=== PATIENT | female | born 1990 | race African-American/Black ===

== ENCOUNTER 2019-04-22 08:57 | Inpatient (IN) | payer MEDICAID ==
[~2019-04-22] VITALS: Ht 157.5 cm; Wt 91.6 kg
[2019-04-22] MEDS: LACTATED RINGERS 500ML 500 ML IV SCH ×3 (03:25→09:58)
[2019-04-22] MEDS ORDERED: DEXT 5%/LR + PITOCIN 20UNITS/L 1,000 ML IV SCH ×2 (09:01→18:44)
[2019-04-22] MEDS ORDERED: NALOXONE HCL 0.4 MG/ML 1ML VIAL IM PRN (09:15)
[2019-04-22] MEDS ORDERED: METHYLERGONOVINE MALEATE 0.2 MG/ML IM PRN (09:15)
[2019-04-22] MEDS ORDERED: CARBOPROST TROMETHAMINE 250 MCG/ML AMPUL IM PRN (09:15)
[2019-04-22 10:46] LABS: BASOPHILS % 0.5 % (0.0-2.0); EOSINOPHILS % 0.9 % (0.0-5.0); HEMATOCRIT. 33.8 % (36.0-48.0); HEMOGLOBIN. 11.7 g/dL (12.0-16.0); LYMPHOCYTES % 31.1 % (20.0-50.0); MEAN CORPUSCULAR VOLUME 86.9 fL (81.0-99.0); MEAN PLATELET VOLUME 9.9 fl (7.4-10.4); MONOCYTES % 8.7 % (2.0-8.0); NEUTROPHILS % 58.8 % (40.0-76.0); PLATELET 225 x1000/uL (130-400); RED BLOOD CELL COUNT 3.89 mill/uL (4.2-5.4); RED CELL DISTRIBUTION WIDTH 13.2 % (11.6-14.6)
[2019-04-22 10:49] LABS: CLARITY URINE CLOUDY (CLEAR); COLOR URINE YELLOW (YELLOW); KETONES URINE NEGATIVE (NEGATIVE); LEUKOCYTE ESTERASE URINE 3+ (NEGATIVE); NITRITE URINE NEGATIVE (NEGATIVE); OCCULT BLOOD URINE TRACE (NEGATIVE); PROTEIN URINE TRACE (NEGATIVE)
[2019-04-22 10:55] LABS: PARTIAL THROMBOPLASTIN TIME 27.5 sec (23.4-31.0); PROTHROMBIN TIME 9.8 sec (9.6-11.0)
[2019-04-22 11:36] LABS: *AMPHETAMINES SCREEN URINE NEGATIVE (NEGATIVE); *BARBITURATES SCREEN URINE NEGATIVE (NEGATIVE)
[2019-04-22 11:37] LABS: *BENZODIAZEPINES SCREEN URINE NEGATIVE (NEGATIVE); *COCAINE SCREEN URINE NEGATIVE (NEGATIVE); CANNABINOID URINE SCREEN NEGATIVE (NEGATIVE); METHADONE URINE SCREEN NEGATIVE (NEGATIVE); OPIATES URINE SCREEN NEGATIVE (NEGATIVE); PHENCYCLIDINE URINE SCREEN NEGATIVE (NEGATIVE)
[2019-04-22 12:11] LABS: HEPATITIS B SURFACE ANTIGEN NEGATIVE
[2019-04-22] MEDS ORDERED: FENTANYL CITRATE/PF 50MCG/ML 2ML VIAL ONE (17:25)
[2019-04-22] MEDS ORDERED: MORPHINE SULFATE/PF 1MG/ML 10ML AMP ONE (17:25)
[2019-04-22] MEDS ORDERED: CEFAZOLIN SODIUM 1000MG/VIAL ONE (17:25)
[2019-04-22] MEDS ORDERED: OXYTOCIN 10 UNITS/ML 1ML ONE ×2 (17:25→18:19)
[2019-04-22] MEDS ORDERED: ONDANSETRON HCL 4MG/2ML INJ ONE (17:25)
[2019-04-22] MEDS ORDERED: KETOROLAC 60MG/2ML VIAL IM ONE (17:25)
[2019-04-22] MEDS ORDERED: IBUPROFEN 400MG TABLET PO PRN (18:45)
[2019-04-22] MEDS ORDERED: HYDROCODONE/ACETAMINOPHEN 5/325MG TABLET PO PRN (18:45)
[2019-04-22] MEDS ORDERED: HEMORRHOIDAL SUPP PR PRN (18:45)
[2019-04-22] MEDS ORDERED: ONDANSETRON HCL 4MG/2ML INJ IV PRN (18:45)
[2019-04-22] MEDS ORDERED: BISACODYL 10MG SUPP PR PRN (18:45)
[2019-04-22] MEDS ORDERED: RHO(D) IMMUNE GLOBULIN 300 MCG/SYR IM PRN (18:45)
[2019-04-22] MEDS ORDERED: MORPHINE SULFATE 2 MG/ML CPJ (NOT FOR IM USE) IV PRN ×2 (19:00)
[2019-04-22] MEDS ORDERED: DIPHENHYDRAMINE 50MG/ML VIAL IV PRN (19:00)
[2019-04-22] MEDS ORDERED: DIPHENHYDRAMINE 25MG CAPSULE PO PRN (21:00)
[2019-04-22] MEDS: DOCUSATE SODIUM 100MG CAPSULE PO SCH (21:00)
[2019-04-22] MEDS: MAGNESIUM/ALUMINUM HYDROXIDE/SIMETHICONE 30ML UDC PO SCH (21:00)
[2019-04-22] MEDS: SIMETHICONE 80MG TABLET CHEW PO SCH (21:00)
[2019-04-22 21:45] VITALS: BP 109/59
[2019-04-22 22:15] VITALS: BP 108/52
[2019-04-22 22:45] VITALS: BP 102/55
[2019-04-22 23:15] VITALS: BP 102/60
[2019-04-23 02:00] VITALS: BP 102/58
[2019-04-23] MEDS ORDERED: ONDANSETRON HCL 4MG/2ML INJ IV PRN (02:00)
[2019-04-23 06:00] VITALS: BP 104/60
[2019-04-23] MEDS: KETOROLAC 30MG/ML VIAL IV PRN ×2 (06:20→07:28)
[2019-04-23 07:02] VITALS: BP 104/54
[2019-04-23 07:10] LABS: BASOPHILS % 0.2 % (0.0-2.0); EOSINOPHILS % 0.3 % (0.0-5.0); HEMATOCRIT. 28.8 % (36.0-48.0); HEMOGLOBIN. 9.9 g/dL (12.0-16.0); MEAN CORPUSCULAR HEMOGLOBIN 30.1 pg (28.0-32.0); MEAN CORPUSCULAR VOLUME 87.3 fL (81.0-99.0); MEAN PLATELET VOLUME 9.6 fl (7.4-10.4); MONOCYTES % 8.8 % (2.0-8.0); NEUTROPHILS % 76.7 % (40.0-76.0); PLATELET 170 x1000/uL (130-400); RED CELL DISTRIBUTION WIDTH 13.2 % (11.6-14.6)
[2019-04-23 07:30] VITALS: BP 108/58
[2019-04-23 15:01] VITALS: BP 99/52
[2019-04-23] MEDS: ACETAMINOPHEN WITH CODEINE 300/30MG TABLET PO PRN (17:23)
[2019-04-23 19:30] VITALS: BP 110/63
[2019-04-23] MEDS: MAGNESIUM/ALUMINUM HYDROXIDE/SIMETHICONE 30ML UDC PO SCH (22:09)
[2019-04-23] MEDS: SIMETHICONE 80MG TABLET CHEW PO SCH (22:10)
[2019-04-23] MEDS: DOCUSATE SODIUM 100MG CAPSULE PO SCH (22:10)
[2019-04-24] MEDS: ACETAMINOPHEN WITH CODEINE 300/30MG TABLET PO PRN ×4 (03:41→22:05)
[2019-04-24 08:00] VITALS: BP 112/66
[2019-04-24] MEDS: SIMETHICONE 80MG TABLET CHEW PO SCH ×2 (08:44→21:02)
[2019-04-24] MEDS: PRENATAL VIT/FE FUMARATE/FA TABLET PO SCH (08:45)
[2019-04-24] MEDS: FERROUS SULFATE 325MG TABLET PO SCH (08:46)
[2019-04-24 16:45] VITALS: BP 128/79
[2019-04-24 19:30] VITALS: BP 112/63
[2019-04-24] MEDS: MAGNESIUM/ALUMINUM HYDROXIDE/SIMETHICONE 30ML UDC PO SCH (21:02)
[2019-04-24] MEDS: DOCUSATE SODIUM 100MG CAPSULE PO SCH (21:02)
[2019-04-25] MEDS: ACETAMINOPHEN WITH CODEINE 300/30MG TABLET PO PRN (02:18)
[2019-04-25 04:00] VITALS: BP 110/65
[2019-04-25] MEDS ORDERED: IBUP-2028 PO (06:42)
[2019-04-25 07:30] VITALS: BP 117/72
[2019-04-25] MEDS: MAGNESIUM/ALUMINUM HYDROXIDE/SIMETHICONE 30ML UDC PO SCH (08:35)
[2019-04-25] MEDS: FERROUS SULFATE 325MG TABLET PO SCH (08:36)
[2019-04-25] MEDS: PRENATAL VIT/FE FUMARATE/FA TABLET PO SCH (08:36)
[2019-04-25] MEDS: SIMETHICONE 80MG TABLET CHEW PO SCH (08:36)
== END 2019-04-25 11:45 | disposition home or self-care (01) | DRG 540 ==
LOC: 8 EST LDRP 08:57 → OBSVTOIN 08:57 → 8EST 20:36
PROVIDERS: ADMIT Obstetrics & Gynecology; ATTEND Obstetrics & Gynecology
PROC: 10D00Z1 Extraction of Products of Conception, Low, Open Approach (ICD-10-PCS; principal; 2019-04-22)
DX: O36.8130 Decreased fetal movements, third trimester, not applicable or unspecified (principal); O41.03X0 Oligohydramnios, third trimester, not applicable or unspecified; O34.211 Maternal care for low transverse scar from previous cesarean delivery; O99.02 Anemia complicating childbirth; D64.9 Anemia, unspecified; O69.2XX0 Labor and delivery complicated by other cord entanglement, with compression, not applicable or unspecified; O69.81X0 Labor and delivery complicated by cord around neck, without compression, not applicable or unspecified; Z37.0 Single live birth; Z3A.39 39 weeks gestation of pregnancy
CPT/HCPCS: 36415; 80305; 81003; 85025; 86592; 86703; 86762; 86850; 86900; 86920; 87340; 88307; J0690; J1200; J1885; J2274; J2405; J2590; J3010; J7120; Q0163